=== PATIENT | female | born 1985 | race Caucasian/White ===

== ENCOUNTER 2017-03-02 20:13 | Emergency (ER) | payer OTHER ==
[2017-03-02] MEDS ORDERED: Sodium Chloride 0.9% 1000 ML 1,000 ML IV STA (20:50)
[2017-03-02] MEDS ORDERED: Zofran 4 MG/2 ML VIAL IV ONE (20:50)
[2017-03-02] MEDS ORDERED: Pepcid 20 MG VIAL IV ONE ×2 (20:52→20:57)
[2017-03-02] MEDS ORDERED: Sodium Chloride 0.9% 1000 ML 1,000 ML ONE (20:57)
[2017-03-02] MEDS ORDERED: Zofran 4 MG/2 ML VIAL ONE (20:57)
--- NOTE | 2017-03-02 20:57 | ERPHSYRPT ---
- History of Present Illness Time Seen by Provider: 03/02/17 20:50 Historian: patient Exam Limitations: no limitations Patient Subjective Stated Complaint: vomiting, diarrhea, numbness in mouth and left arm Triage Nursing Assessment: Pt alert and oriented. Skin pink, warm, and dry. No visible distress. Physician History: Pt started c/o upper abdominal pain this morning, started vomiting this afternoon, vomited x6, developed diarrhea, denies vomiting blood or black stuff , no bloody diarrhea, urinary complaints, denies sore throat, fever, productive cough, chest pain other complaints. She recently quit smoking. Timing/Duration: today Activities at Onset: none Quality: cramping Abdominal Pain Onset Location: RUQ Pain Radiation: no radiation Severity of Pain-Max: severe Severity of Pain-Current: none Modifying Factors: Improves With: nothing Associated Symptoms: diarrhea, nausea, vomiting Previous symptoms: no prior history Allergies/Adverse Reactions: Penicillins Allergy (Verified 03/02/17 20:31) Home Medications: Cholecalciferol (Vitamin D3) [Vitamin D] 03/02/17 [History] Cyanocobalamin (Vitamin B-12) [Vitamin B-12] 03/02/17 [History] Multivitamin [Multivitamins] 1 tablet PO DAILY 03/02/17 [History] Hx Tetanus, Diphtheria Vaccination/Date Given: Yes Hx Influenza Vaccination/Date Given: No Hx Pneumococcal Vaccination/Date Given: No Immunizations Up to Date: No (flu not utd) - Review of Systems Constitutional: No Symptoms Abdominal/Gastrointestinal: Abdominal Pain, Nausea, Vomiting, Diarrhea All Other Systems: Reviewed and Negative - Past Medical History Pertinent Past Medical History: No Neurological History: No Pertinent History Cardiac History: No Pertinent History Respiratory History: No Pertinent History Endocrine Medical History: No Pertinent History Musculoskeletal History: No Pertinent History GI Medical History: No Pertinent History History: No Pertinent History Psycho-Social History: No Pertinent History Female Reproductive Disorders: No Pertinent History Other Medical History: APPENDECTOMY; RECENT PT SERVICES FOR LOW BACK PAIN; - Past Surgical History Past Surgical History: No - Social History Smoking Status: Former smoker How long have you smoked: 10 Exposure to second hand smoke: No Drug Use: none Patient Lives Alone: No - Female History Hx Last Menstrual Period: appx 4-5 months ago Hx Now: No (unknown) - Nursing Vital Signs Nursing Vital Signs: Initial Vital Signs Temperature 97.6 F 03/02/17 20:21 Pulse Rate 107 H 03/02/17 20:21 Respiratory Rate 12 03/02/17 20:21 Blood Pressure 114/73 03/02/17 20:21 O2 Sat by Pulse Oximetry 97 03/02/17 20:21 Pain Scale Pain Intensity 4 - Physical Exam General Appearance: no apparent distress Eye Exam: eyes nml inspection Ears, Nose, Throat Exam: normal ENT inspection, pharynx normal Neck Exam: normal inspection, non-tender, supple Respiratory Exam: normal breath sounds, lungs clear, No chest tenderness Cardiovascular Exam: regular rate/rhythm, normal heart sounds, normal peripheral pulses, capillary refill <2 sec, No murmur Gastrointestinal/Abdomen Exam: soft, normal bowel sounds, No tenderness, No distention, No mass, No guarding, No rebound Extremity Exam: normal inspection Neurologic Exam: alert, oriented x 3, cooperative, normal mood/affect Skin Exam: normal color, warm, dry, No rash Lymphatic Exam: No adenopathy SpO2 Interpretation: normal SpO2: 97 Oxygen Delivery: Room Air - Course Nursing assessment & vital signs reviewed: Yes EKG Interpreted by Me: RATE, NORMAL AXIS, NORMAL INTERVALS, NORMAL ST-T - Radiology Exams Abdomen X-ray Interpretation: Negative, No Pneumonia Ordered Tests: Active Orders 24 hr Category Date Time Status Clean Catch Urine Specimen STAT Care 03/02/17 20:53 Active EKG-ER Only STAT Care 03/02/17 20:50 Active IV Insertion STAT Care 03/02/17 20:50 Active OBSTR/ACUTE ABDOMEN SERIES Stat Exams 03/02/17 21:47 Taken CBC W DIFF Stat Lab 03/02/17 20:50 Completed CMP Stat Lab 03/02/17 20:50 Completed CULTURE,URINE Stat Lab 03/02/17 20:50 Received HCG,QUALITATIVE URINE Stat Lab 03/02/17 20:50 Completed LIPASE Stat Lab 03/02/17 20:50 Completed Lactic Acid Stat Lab 03/02/17 21:26 Completed TROPONIN Q3H Lab 03/02/17 20:50 Completed UA W/ MICROSCOPIC Stat Lab 03/02/17 20:50 Completed Medication Summary Discontinued Medications Generic Name Dose Route Start Last Admin Trade Name Freq PRN Reason Stop Dose Admin Famotidine 20 mg 03/02/17 20:52 03/02/17 21:00 Pepcid 20 Mg Vial IV 12/13/17 20:53 20 mg STAT ONE Administration Famotidine Confirm 03/02/17 20:57 Pepcid 20 Mg Vial Administered 03/02/17 20:58 Dose 20 mg IV .STK-MED ONE Sodium Chloride 1,000 mls @ 999 mls/hr 03/02/17 20:50 03/02/17 20:59 Sodium Chloride 0.9% 1000 Ml IV 03/02/17 21:50 999 mls/hr .Q1H1M STA Administration Sodium Chloride Confirm 03/02/17 20:57 Sodium Chloride 0.9% 1000 Ml Administered 03/02/17 20:58 Dose 1,000 mls @ ud .ROUTE .STK-MED ONE Ondansetron HCl 4 mg 03/02/17 20:50 03/02/17 21:00 Zofran 4 Mg/2 Ml Vial IV 03/02/17 20:51 4 mg STAT ONE Administration Ondansetron HCl Confirm 03/02/17 20:57 Zofran 4 Mg/2 Ml Vial Administered 03/02/17 20:58 Dose 4 mg .ROUTE .STK-MED ONE Lab/Rad Data: Laboratory Result Diagrams 03/02/17 20:50 03/02/17 20:50 Laboratory Results 03/02/17 03/02/17 03/02/17 Range/Units 21:26 21:00 20:50 WBC (4.0-10.5) K/mm3 RBC (4.1-5.4) M/mm3 Hgb (12.0-16.0) gm/dl Hct (35-47) % MCV (78-100) fl MCH (26-32) pg MCHC (32-36) g/dl RDW (11.5-14.0) % Plt Count (150-450) K/mm3 MPV (6-9.5) fl Gran % (36.0-66.0) % Lymphocytes % (24.0-44.0) % Monocytes % (0.0-12.0) % Eosinophils % (0.00-5.0) % Basophils % (0.0-0.4) % Basophils # (0-0.4) Sodium (136-145) mEq/L Potassium (3.5-5.1) mEq/L Chloride (98-107) mEq/L Carbon Dioxide (21-32) mEq/L Anion Gap (5-15) MEQ/L BUN (9-20) mg/dL Creatinine (0.55-1.30) mg/dl Estimated GFR ML/MIN Glucose (70-110) MG/DL Lactic Acid 0.8 (0.4-2.0) Calcium (8.5-10.1) mg/dL Total Bilirubin (0.2-1.0) mg/dL AST (15-37) U/L ALT (12-78) U/L Alkaline Phosphatase (46-116) U/L Troponin I (0.000-0.056) ng/ml Serum Total Protein (6.4-8.2) gm/dL Albumin (3.4-5.0) g/dL Lipase (73-393) U/L Ur Collection Type Urine Color (YELLOW) Urine Appearance (CLEAR) Urine pH (5-6) Ur Specific Eros (1.005-1.025) Urine Protein (Negative) Urine Ketones (NEGATIVE) Urine Blood (0-5) Joseph/ul Urine Nitrite (NEGATIVE) Urine Bilirubin (NEGATIVE) Urine Urobilinogen (0-1) mg/dL Ur Leukocyte Esterase (NEGATIVE) Urine Microscopic RBC (0-2) /HPF Urine Microscopic WBC (0-5) /HPF Ur Epithelial Cells (FEW) /HPF Urine Bacteria (NEGATIVE) /HPF Urine Culture Reflexed (NO) Urine Glucose (NEGATIVE) mg/dL Urine HCG, Qual NEGATIVE (Negative) Influenza Type A Ag NEGATIVE (NEGATIVE) Influenza Type B Ag NEGATIVE (NEGATIVE) RSV (PCR) NEGATIVE (Negative) Specimen Received 03/02/17 03/02/17 03/02/17 Range/Units 20:50 20:50 20:50 WBC (4.0-10.5) K/mm3 RBC (4.1-5.4) M/mm3 Hgb (12.0-16.0) gm/dl Hct (35-47) % MCV (78-100) fl MCH (26-32) pg MCHC (32-36) g/dl RDW (11.5-14.0) % Plt Count (150-450) K/mm3 MPV (6-9.5) fl Gran % (36.0-66.0) % Lymphocytes % (24.0-44.0) % Monocytes % (0.0-12.0) % Eosinophils % (0.00-5.0) % Basophils % (0.0-0.4) % Basophils # (0-0.4) Sodium 138 (136-145) mEq/L Potassium 3.6 (3.5-5.1) mEq/L Chloride 103 (98-107) mEq/L Carbon Dioxide 21.9 (21-32) mEq/L Anion Gap 16.6 H (5-15) MEQ/L BUN 16 (9-20) mg/dL Creatinine 0.95 (0.55-1.30) mg/dl Estimated GFR > 60 ML/MIN Glucose 111 H (70-110) MG/DL Lactic Acid (0.4-2.0) Calcium 8.7 (8.5-10.1) mg/dL Total Bilirubin 0.60 (0.2-1.0) mg/dL AST 13 L (15-37) U/L ALT 14 (12-78) U/L Alkaline Phosphatase 55 (46-116) U/L Troponin I < 0.017 (0.000-0.056) ng/ml Serum Total Protein 7.3 (6.4-8.2) gm/dL Albumin 3.6 (3.4-5.0) g/dL Lipase 89 (73-393) U/L Ur Collection Type CCMS Urine Color YELLOW (YELLOW) Urine Appearance CLEAR (CLEAR) Urine pH 5.0 (5-6) Ur Specific Eros 1.020 (1.005-1.025) Urine Protein NEGATIVE (Negative) Urine Ketones NEGATIVE (NEGATIVE) Urine Blood 50 (0-5) Joseph/ul Urine Nitrite NEGATIVE (NEGATIVE) Urine Bilirubin SMALL (NEGATIVE) Urine Urobilinogen NORMAL (0-1) mg/dL Ur Leukocyte Esterase TRACE (NEGATIVE) Urine Microscopic RBC 0-2 (0-2) /HPF Urine Microscopic WBC 2-5 (0-5) /HPF Ur Epithelial Cells MANY (FEW) /HPF Urine Bacteria MODERATE (NEGATIVE) /HPF Urine Culture Reflexed YES (NO) Urine Glucose NEGATIVE (NEGATIVE) mg/dL Urine HCG, Qual (Negative) Influenza Type A Ag (NEGATIVE) Influenza Type B Ag (NEGATIVE) RSV (PCR) (Negative) Specimen Received 12-13-17 2210 12/13/17 Range/Units 20:50 WBC 15.1 H (4.0-10.5) K/mm3 RBC 5.31 (4.1-5.4) M/mm3 Hgb 15.7 (12.0-16.0) gm/dl Hct 47.2 H (35-47) % MCV 88.9 (78-100) fl MCH 29.6 (26-32) pg MCHC 33.3 (32-36) g/dl RDW 13.4 (11.5-14.0) % Plt Count 245 (150-450) K/mm3 MPV 12.0 H (6-9.5) fl Gran % 84.3 H (36.0-66.0) % Lymphocytes % 8.1 L (24.0-44.0) % Monocytes % 7.3 (0.0-12.0) % Eosinophils % 0.3 (0.00-5.0) % Basophils % 0.0 (0.0-0.4) % Basophils # 0 (0-0.4) Sodium (136-145) mEq/L Potassium (3.5-5.1) mEq/L Chloride (98-107) mEq/L Carbon Dioxide (21-32) mEq/L Anion Gap (5-15) MEQ/L BUN (9-20) mg/dL Creatinine (0.55-1.30) mg/dl Estimated GFR ML/MIN Glucose (70-110) MG/DL Lactic Acid (0.4-2.0) Calcium (8.5-10.1) mg/dL Total Bilirubin (0.2-1.0) mg/dL AST (15-37) U/L ALT (12-78) U/L Alkaline Phosphatase (46-116) U/L Troponin I (0.000-0.056) ng/ml Serum Total Protein (6.4-8.2) gm/dL Albumin (3.4-5.0) g/dL Lipase (73-393) U/L Ur Collection Type Urine Color (YELLOW) Urine Appearance (CLEAR) Urine pH (5-6) Ur Specific Eros (1.005-1.025) Urine Protein (Negative) Urine Ketones (NEGATIVE) Urine Blood (0-5) Joseph/ul Urine Nitrite (NEGATIVE) Urine Bilirubin (NEGATIVE) Urine Urobilinogen (0-1) mg/dL Ur Leukocyte Esterase (NEGATIVE) Urine Microscopic RBC (0-2) /HPF Urine Microscopic WBC (0-5) /HPF Ur Epithelial Cells (FEW) /HPF Urine Bacteria (NEGATIVE) /HPF Urine Culture Reflexed (NO) Urine Glucose (NEGATIVE) mg/dL Urine HCG, Qual (Negative) Influenza Type A Ag (NEGATIVE) Influenza Type B Ag (NEGATIVE) RSV (PCR) (Negative) Specimen Received - Progress Progress: improved Progress Note: 03/02/17 22:47 Improved after iv. fluids, Zofran, did not vomit, afebrile, comfortable, denies pain. I discussed all results with her, suggested to rest x 2-3 days, stay on liquids , return if any changes, fever> 102F or vomiting, and follow up with her PCP after few days. She agreed, all questions answered, she is stable to be discharged. - Departure Time of Disposition: 22:49 Departure Disposition: Home Clinical Impression: Vomiting Qualifiers: Vomiting type: unspecified Vomiting Intractability: non-intractable Nausea presence: with nausea Qualified Code(s): R11.2 - Nausea with vomiting, unspecified UTI (urinary tract infection) Qualifiers: Urinary tract infection type: site unspecified Hematuria presence: without hematuria Qualified Code(s): N39.0 - Urinary tract infection, site not specified Condition: Stable Critical Care Time: No Referrals: ISMAEL SAAVEDRA [Primary Care Provider] - Instructions: Urinary Tract Infection (UTI), Vomiting -- Adult Additional Instructions: Rest x 2-3 days, drink plenty of fluids, return if severe pain, vomiting, fever > 102F, lethargy ! Prescriptions: Cephalexin Mh 500 mg [Keflex 500 mg] 500 mg PO STAT 7 Days #28 capsule Ondansetron [Zofran Odt] 4 mg PO Q6-8HPRN PRN 5 Days #10 tab.rapdis PRN Reason: Nausea/Vomiting
[2017-03-02 21:00] LABS: Eosinophil % 0.3 % (0.00-5.0); Granulocytes % 84.3 % (36.0-66.0); Lymphocytes % 8.1 % (24.0-44.0); Mean Cell Volume 88.9 fl (78-100); Mean Corpuscular Hemoglobin 29.6 pg (26-32); Monocytes % 7.3 % (0.0-12.0); Platelet Count 245 K/mm3 (150-450); Red Blood Count 5.31 M/mm3 (4.1-5.4); Red Cell Distribution Width 13.4 % (11.5-14.0); White Blood Count 15.1 K/mm3 (4.0-10.5)
[2017-03-02 21:33] LABS: ALBUMIN 3.6 g/dL (3.4-5.0); ALKALINE PHOSPHATASE 55 U/L (46-116); ANION GAP 16.6 MEQ/L (5-15); BLOOD UREA NITROGEN 16 mg/dL (9-20); CHLORIDE 103 mEq/L (98-107); Carbon Dioxide 21.9 mEq/L (21-32); Glucose 111 MG/DL (70-110); LIPASE 89 U/L (73-393); Potassium 3.6 mEq/L (3.5-5.1); SGOT/AST 13 U/L (15-37); SGPT/ALT 14 U/L (12-78); SODIUM 138 mEq/L (136-145); Total Protein 7.3 gm/dL (6.4-8.2)
[2017-03-02 22:13] LABS: Collection Type CCMS
[2017-03-02 22:14] LABS: Bilirubin SMALL (NEGATIVE); Blood 50 Ery/ul (0-5); COMPLETE URINE MICROSCOPIC? YES; Glucose NEGATIVE (NEGATIVE); Leukocyte Esterase TRACE (NEGATIVE)
[2017-03-02 22:15] LABS: ADD URINE CULTURE? YES (NO); Bacteria MODERATE /HPF (NEGATIVE); Epithelial Cells MANY /HPF (FEW)
[2017-03-02] MEDS ORDERED: KEFLEX 500 MG PO ONE (22:52)
[2017-03-02] MEDS ORDERED: KEFLEX 500 MG ONE (22:58)
[2017-03-02 23:18] VITALS: BP 111/60; PULSE 98; O2SAT 100
--- NOTE | 2017-03-03 08:51 | XRAY ---
Indication: Right upper quadrant pain, nausea and vomiting. Flu symptoms. Comparison: None 2 views of the abdomen nonacute and nonobstructed. Solid organs and osseous structures unremarkable. Single PA chest demonstrates normal heart, lungs, and bony thorax. Impression: Negative abdomen. Normal 1 view chest.
== END 2017-03-02 23:18 | disposition home or self-care (01) ==
LOC: ED 20:13
DX: R11.2 Nausea with vomiting, unspecified (principal); N39.0 Urinary tract infection, site not specified; R10.11 Right upper quadrant pain
CPT/HCPCS: 36000; 36415; 74022; 80053; 81000; 83605; 83690; 84484; 84703; 85025; 87086; 87631; 93005; 96360; 96374; 96375; 99284; J2405; A9270-GY

== ENCOUNTER 2019-03-02 16:47 | Emergency (ER) | payer OTHER ==
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
[2019-03-02] MEDS ORDERED: OXYCODONE-ACETAMINOPHEN 10-325 PO STA (17:08)
[2019-03-02] MEDS ORDERED: Cyclobenzaprine 10 MG PO ONE (17:08)
[2019-03-02] MEDS ORDERED: MOTRIN 400 MG PO ONE (17:09)
[2019-03-02] MEDS ORDERED: MOTRIN 400 MG ONE (17:16)
[2019-03-02] MEDS ORDERED: Cyclobenzaprine 10 MG ONE (17:16)
[2019-03-02] MEDS ORDERED: OXYCODONE-ACETAMINOPHEN 10-325 ONE (17:16)
[2019-03-02 18:42] VITALS: BP 121/86; PULSE 106; O2SAT 98
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
== END 2019-03-02 18:40 | disposition home or self-care (01) ==
LOC: ED 16:47
DX: S20.211A Contusion of right front wall of thorax, initial encounter (principal); S80.12XA Contusion of left lower leg, initial encounter; V89.0XXA Person injured in unspecified motor-vehicle accident, nontraffic, initial encounter; Y93.9 Activity, unspecified; Y92.89 Other specified places as the place of occurrence of the external cause; R07.81 Pleurodynia; M79.662 Pain in left lower leg
CPT/HCPCS: 71100; 73590; 99284; A9270-GY

== ENCOUNTER 2022-05-18 07:09 | Day surgery (SDC) | payer BC, MEDICAID ==
[2022-05-18] MEDS ORDERED: Sensorcaine 0.25% 10 ML ONE (07:15)
[2022-05-18] MEDS ORDERED: CLINDAMYCIN-D5W 900 MG/50 ML*** 900 MG/50 ML BAG IV STA (07:22)
[2022-05-18] MEDS ORDERED: Lactated Ringers 1,000 ML IV SCH (07:30)
[2022-05-18] MEDS ORDERED: Lactated Ringers 1,000 ML IV ONE (07:31)
[2022-05-18] MEDS ORDERED: CLINDAMYCIN-D5W 900 MG/50 ML*** 900 MG/50 ML BAG IV ONE (07:31)
[2022-05-18] MEDS ORDERED: Xylocaine-Mpf 2% 5 Ml Vial ONE (08:38)
[2022-05-18] MEDS ORDERED: BRIDION 200MG/2ML IV ONE (08:38)
[2022-05-18] MEDS ORDERED: Zemuron 100 MG/10 ML ONE (08:38)
[2022-05-18] MEDS ORDERED: Zofran 4 MG/2 ML VIAL ONE (08:38)
[2022-05-18] MEDS ORDERED: Decadron 4 MG INJ ONE (08:38)
[2022-05-18] MEDS ORDERED: DIPRIVAN 200 MG/20 ML IV ONE ×2 (08:39→10:12)
[2022-05-18] MEDS ORDERED: SUBLIMAZE 100 MCG/2 ML ONE ×2 (08:42→10:10)
[2022-05-18] MEDS ORDERED: Versed 2 MG/2 ML Injection ONE (08:45)
[2022-05-18] MEDS ORDERED: Pre-Attached Lta Kit TP ONE (09:04)
[2022-05-18] MEDS ORDERED: ROBINUL ONE (09:31)
[2022-05-18] MEDS ORDERED: XYLOCAINE 1%/Epi 1:100000 MDV 20 ML ONE ×2 (09:37→09:46)
[2022-05-18] MEDS ORDERED: NORCO 5/325 MG PO ONE (11:05)
[2022-05-18 11:25] VITALS: O2SAT 98
[2022-05-18 11:42] VITALS: BP 124/71; PULSE 68
--- NOTE | 2022-05-19 08:34 | OP ---
SURGERY DATE/TIME: 05/18/2022 0900 PREOPERATIVE DIAGNOSIS: Severe cervical dysplasia, menorrhagia, multiparity desiring tubal sterilization. POSTOPERATIVE DIAGNOSIS: Severe cervical dysplasia, menorrhagia, multiparity desiring tubal sterilization. PROCEDURES: 1) Laparoscopic tubal sterilization via Falope ring application. 2) Hysteroscopy D&C with attempted ablation and LEEP (loop electrosurgical excision procedure). SURGEON: Sen Almonte D.O. LOBBY CONCIERGE: Hillary Kaufman surgical brace maker. ANESTHESIA: General. ESTIMATED BLOOD LOSS: Minimal. COMPLICATIONS: None. INDICATIONS: The risks, benefits, indications and alternatives of the procedure were reviewed with the patient prior to procedure. The patient understood the risk of infection, bleeding, bowel injury, bladder injury, ureteral injury, uterine perforation, pelvic infection, possible and ectopic that may be associated with this procedure and desires to have this procedure as a possible means to alleviate her current medical condition. DESCRIPTION OF PROCEDURE AND FINDINGS: At this point the patient is taken to the operating room, given general sedation, placed in the dorsal lithotomy position, prepped and draped in the usual sterile fashion. A weighted speculum is then placed in the patient's vagina and the anterior lip of the cervix is grasped with a single tooth tenaculum. From this point uterine manipulator was then inserted in through the endocervical region as a means to manipulate the uterus and elevate the uterus for the procedure of sterilization. Attention was then turned to the patient's abdomen where a 5 mm skin incision was made in the umbilical fold. A 5 mm trocar and sleeve were advanced under direct visualization where pneumoperitoneum obtained with 4 liters of CO2 gas. An additional incision was made approximately 2 cm above the symphysis pubis where an 8 mm incision was made and 8 mm trocar and sleeve were advanced under direct visualization. From this point the uterus is then elevated and the Falope ring applicator was then placed in through the 8 mm incision where on the isthmic region the fallopian tube was grasped and the Falope ring was placed on the isthmic region where it was displaced without complication and good placement was noted. The same procedure was performed on the right tube where the right fallopian tube applicator was placed on the isthmic region where it too was lifted and was displaced on its side with good placement of the Falope ring with a good knuckle of tube that was noted on both sides. A survey of the patient's pelvis appeared to be within normal limits with no abnormalities that were noted. From this point all instruments were removed from the patient's abdominal region. The incisions were closed with 4-0 Monocryl suture. Attention was then turned to the patient's pelvic region where at this point a weighted speculum was then placed into the patient's vagina and the anterior lip of the cervix grasped with a single tooth tenaculum. Endocervical dilators were advanced to the endocervical canal as a means to dilate the cervix. A 5 mm hysteroscope was then placed into the endocervical canal where at this point there was no gross abnormalities that were noted within the uterine cavity. A curette was then placed into the fundus of the uterus and curettage was performed in all quadrants of the uterus retrieving a mild to moderate amount of tissue. Again, hemostasis was noted. The NovaSure was then placed through the endocervical region where it was attempted at 6.5 cm length and 6.0 cm length. However, the uterine cavity did not accept the NovaSure placement. It did not pass the test for NovaSure and at this point after several attempts the procedure was abandoned. From this point all instruments were removed from the patient's vaginal region and a coated speculum was then replaced into the vaginal region to proceed with the LEEP procedure where the cervix was then injected circumferentially with 1% lidocaine with epinephrine and approximately 5 cc was used. From this point the loop instrument was then used and a right to left motion the ectocervical tissue was excised and was done so without complication. An additional portion was excised in similar fashion with in depth of 2 to 3 mm of endocervical tissue was removed. From this point hemostasis was obtained by placing loop hand drawer in helper ball on the surface of the cervix and again hemostasis was assured. From this point all instruments were removed from the patient's vaginal region. The patient was then taken out of the dorsal lithotomy position, was taken out of the anesthesia and was then taken to the recovery room in stable condition. All instruments and laps were accounted for x2.
== END 2022-05-18 11:50 | disposition home or self-care (01) ==
LOC: SDC 07:09
PROVIDERS: ATTEND Obstetrics & Gynecology
DX: Z30.2 Encounter for sterilization (principal); N92.0 Excessive and frequent menstruation with regular cycle; D06.9 Carcinoma in situ of cervix, unspecified
CPT/HCPCS: 81025; J1100; J2250; J2405; J2704; J3010; A9270-GY